=== PATIENT | female | born 1975 | race Caucasian/White ===

== ENCOUNTER 2020-04-07 20:08 | Emergency (ER) | payer BC, OTHER ==
[2020-04-07] MEDS ORDERED: Adacel (T-DAP) 0.5 ML SYRINGE ONE (20:29)
[2020-04-07] MEDS ORDERED: Bacitracin 1 PK ONE (21:13)
--- NOTE | 2020-04-07 21:36 | RAD ---
RIGHT ELBOW 4 VIEWS: Date: 04/07/2020 HISTORY: Elbow injury. FINDINGS: No radiopaque foreign bodies are seen. No joint effusion or fracture. IMPRESSION: No acute changes. POS: OFF
== END 2020-04-07 21:12 | disposition home or self-care (01) ==
LOC: MADERS 20:08
DX: S51.031A Puncture wound without foreign body of right elbow, initial encounter (principal); I10 Essential (primary) hypertension; E03.9 Hypothyroidism, unspecified; F90.9 Attention-deficit hyperactivity disorder, unspecified type; F41.9 Anxiety disorder, unspecified; F32.9 Major depressive disorder, single episode, unspecified; Z79.899 Other long term (current) drug therapy; W45.0XXA Nail entering through skin, initial encounter
CPT/HCPCS: 90471; 90715

== ENCOUNTER 2020-07-28 13:29 | Emergency (ER) | payer OTHER, SELFPAY ==
[2020-07-28 15:37] LABS: Bilirubin Negative (Negative); Blood, Urine Negative (Negative); Glucose, Urine (Dipstick) Negative (Negative); Ketone, Urine Negative (Negative); Leukocyte Trace (Negative); Nitrite Positive (Negative); Protein, Urine (Dipstick) Negative (Neg-Trace); Urobilinogen 0.2 mg/dL (Less than 2); pH, Urine 5.5 (5.0-9.0)
[2020-07-28 15:40] LABS: Clarity Slightly Cloudy (Clear); Specific Gravity, Urine 1.025 (1.002-1.036)
[2020-07-28 15:43] LABS: #Basophils 0.1 thou/uL (0.0-0.2); #Eosinphils 0.1 thou/uL (0.0-0.7); #Lymphocytes 1.9 thou/uL (1.20-3.40); #Monocytes 0.4 thou/uL (0.11-0.59); #Neutrophils 2.8 thou/uL (1.40-6.50); %Basophils 0.9 % (0.0-1.0); %Eosinophils 2.2 % (0.0-10.0); %Lymphocytes 36.3 % (21.0-51.0); %Monocytes 8.2 % (0.0-10.0); %Neutrophils 52.3 % (42.0-75.0); Anisocytosis SLIGHT = 6-15 cells (100X) (0-5/hpf); Hemoglobin 10.6 g/dL (12.0-16.0); Hypochromia SLIGHT = 6-15 cells (100X) (0-5/hpf); MDiff Complete? YES; Mean Corpuscular HGB CONC 31.1 g/dL (32.0-36.0); Mean Corpuscular Hemoglobin 24.6 pg (27.0-31.0); Mean Platelet Volume 8.8 fL (7.4-10.4); Microcytosis SLIGHT = 6-15 cells (100X) (0-5/hpf); Ovalocytes SLIGHT = 2-5 cells (100X) (0-1/hpf); Platelet Count 285 thou/uL (130-400); Platelet Morphology Comment Appears Adequate; RBC Distribution Width 14.4 % (11.5-14.5); White Blood Cell (WBC) Count 5.3 thou/uL (4.8-10.8)
[2020-07-28 15:44] LABS: RBC/HPF 0-3 HPF (0-3)
[2020-07-28 15:45] LABS: Bacteria/HPF 4+ HPF (None Seen)
[2020-07-28 15:47] LABS: ALT (SGPT) 13 U/L (8-55); AST (SGOT) 13 U/L (5-34); Albumin 3.7 g/dL (3.5-5.0); Alkaline Phosphatase 64 U/L (40-110); Anion Gap 13 mmol/L (10-20); BUN (Urea Nitrogen) 8 mg/dL (7.0-18.7); Bilirubin, Total 0.2 mg/dL (0.2-1.2); Calc. Creatinine Clearance 0 mL/min (70-130); Calcium 8.7 mg/dL (7.8-10.44); Carbon Dioxide 26 mmol/L (22-29); Chloride 108 mmol/L (98-107); Estimated GFR-MDRD 83; Globulin 3.3 g/dL (2.4-3.5); Glucose 90 mg/dL (70-105); Potassium 3.3 mmol/L (3.5-5.1); Sodium 144 mmol/L (136-145)
[2020-07-28] MEDS ORDERED: Nitrofurantoin Monohyd/M-Cryst 100 MG CAP ONE (16:05)
[2020-07-29 08:19] LABS: SARS-CoV-2 by NAA Indeterminate (NotDetected)
[2020-07-29 09:15] LABS: SARS-CoV-2 MS2 Positive; SARS-CoV-2 N Gene Positive; SARS-CoV-2 S Gene Negative; SARS-CoV-2 orf1ab Negative
== END 2020-07-28 16:22 | disposition home or self-care (01) ==
LOC: MADERS 13:29
DX: N39.0 Urinary tract infection, site not specified (principal); E05.90 Thyrotoxicosis, unspecified without thyrotoxic crisis or storm; I10 Essential (primary) hypertension; Z79.01 Long term (current) use of anticoagulants; Z79.899 Other long term (current) drug therapy
CPT/HCPCS: 80053; 81003; 81015; 83735; 84443; 84484; 85025; 87635; 93005; U0003

== ENCOUNTER 2020-11-19 21:41 | Emergency (ER) | payer SELFPAY ==
[2020-11-19] MEDS ORDERED: Ketorolac Tromethamine 60 MG/2 ML VIAL ONE (22:16)
[2020-11-19] MEDS ORDERED: Cyclobenzaprine 10 MG TAB ONE (22:16)
[2020-11-19 22:27] LABS: Bacteria/HPF 1+ HPF (None Seen); Mucous/LPF 2+ LPF (<2+)
== END 2020-11-19 22:46 | disposition home or self-care (01) ==
LOC: MADERS 21:41
DX: M62.838 Other muscle spasm (principal); N39.0 Urinary tract infection, site not specified; R07.89 Other chest pain; E03.9 Hypothyroidism, unspecified; I10 Essential (primary) hypertension; Z79.899 Other long term (current) drug therapy
CPT/HCPCS: 81015; 87077; 87086; 87186; 93005; 96372; J1885

== ENCOUNTER 2021-01-30 22:26 | Emergency (ER) | payer OTHER, SELFPAY ==
[2021-01-30] MEDS ORDERED: Cephalexin 500 MG CAP ONE (22:51)
== END 2021-01-31 00:30 | disposition home or self-care (01) ==
LOC: MADERS 22:26
DX: S91.332A Puncture wound without foreign body, left foot, initial encounter (principal); I10 Essential (primary) hypertension; E03.9 Hypothyroidism, unspecified; Z79.899 Other long term (current) drug therapy; W26.0XXA Contact with knife, initial encounter

== ENCOUNTER 2021-03-16 21:39 | Emergency (ER) | payer SELFPAY ==
[~2021-03-16 21:39] MED LIST: Iopamidol 370 76% 100 ML VIAL ONE
[2021-03-16] MEDS ORDERED: Morphine 4 MG/ML VIAL ONE (22:02)
[2021-03-16] MEDS ORDERED: Ondansetron PF 4 MG/2 ML Vial ONE (22:02)
[2021-03-16 22:14] LABS: #Basophils 0.1 thou/uL (0.0-0.2); #Eosinphils 0.2 thou/uL (0.0-0.7); #Lymphocytes 2.5 thou/uL (1.20-3.40); #Monocytes 0.7 thou/uL (0.11-0.59); #Neutrophils 4.2 thou/uL (1.40-6.50); %Basophils 1.5 % (0.0-1.0); %Eosinophils 3.1 % (0.0-10.0); %Lymphocytes 32.7 % (21.0-51.0); %Monocytes 8.3 % (0.0-10.0); %Neutrophils 54.4 % (42.0-75.0); Hemoglobin 12.8 g/dL (12.0-16.0); Mean Corpuscular HGB CONC 32.5 g/dL (32.0-36.0); Mean Corpuscular Hemoglobin 29.1 pg (27.0-31.0); Mean Corpuscular Volume 89.5 fL (78.0-98.0); Mean Platelet Volume 8.9 fL (7.4-10.4); Platelet Count 286 thou/uL (130-400); RBC Distribution Width 12.9 % (11.5-14.5); Red Blood Cell (RBC) Count 4.42 mill/uL (4.20-5.40); White Blood Cell (WBC) Count 7.7 thou/uL (4.8-10.8)
[2021-03-16 22:29] LABS: BHCG - Serum Negative (NEGATIVE); Pregs Control Background? CLEAR/WHITE (CLR/WHITE); Pregs Control Bar Appear? YES (CONTROL BAR)
[2021-03-16 22:32] LABS: ALT (SGPT) 19 U/L (8-55); AST (SGOT) 15 U/L (5-34); Alkaline Phosphatase 62 U/L (40-110); Anion Gap 11 mmol/L (10-20); BUN (Urea Nitrogen) 11 mg/dL (7.0-18.7); Bilirubin, Total 0.2 mg/dL (0.2-1.2); Calc. Creatinine Clearance 0 mL/min (70-130); Calcium 9.3 mg/dL (7.8-10.44); Carbon Dioxide 28 mmol/L (22-29); Chloride 107 mmol/L (98-107); Globulin 2.6 g/dL (2.4-3.5); Glucose 72 mg/dL (70-105); Protein, Total 6.6 g/dL (6.0-8.3); Sodium 142 mmol/L (136-145)
[2021-03-16 23:40] LABS: Bilirubin Small (Negative); Blood, Urine Negative (Negative); Clarity Cloudy (Clear); Glucose, Urine (Dipstick) Negative (Negative); Ketone, Urine Negative (Negative); Leukocyte Negative (Negative); Nitrite Negative (Negative); Protein, Urine (Dipstick) Negative (Neg-Trace); Specific Gravity, Urine 1.025 (1.005-1.030); pH, Urine 5.5 (5.0-9.0)
[2021-03-16 23:44] LABS: Pregnancy Test - Urine (BHCG) Negative (Negative); Pregu Control Background? CLEAR/WHITE (CLR/WHITE); Pregu Control Bar Appear? YES (CONTROL BAR); Specific Gravity 1.025 (1.002-1.036)
[2021-03-17] MEDS ORDERED: Ketorolac Tromethamine 30 MG/ML VIAL ONE (00:01)
== END 2021-03-17 00:06 | disposition short-term general hospital (02) ==
LOC: MADERS 21:39
DX: R10.31 Right lower quadrant pain (principal); E03.9 Hypothyroidism, unspecified; I10 Essential (primary) hypertension; D69.6 Thrombocytopenia, unspecified; D64.9 Anemia, unspecified; Z86.16 Personal history of COVID-19
CPT/HCPCS: 74177; 80053; 81003; 81025; 84703; 85025; 86850; 86900; 86901; 96374; 96375; J1885; J2270; J2405; Q9967

== ENCOUNTER 2021-06-16 12:34 | Emergency (ER) | payer OTHER, SELFPAY ==
[2021-06-16] MEDS ORDERED: Bacitracin 1 PK ONE (13:13)
== END 2021-06-16 13:20 | disposition home or self-care (01) ==
LOC: MADERS 12:34
DX: S01.01XA Laceration without foreign body of scalp, initial encounter (principal); E03.9 Hypothyroidism, unspecified; I10 Essential (primary) hypertension; W22.8XXA Striking against or struck by other objects, initial encounter
CPT/HCPCS: 12001

== ENCOUNTER 2021-07-14 15:48 | Emergency (ER) | payer SELFPAY ==
[2021-07-14] MEDS ORDERED: Ibuprofen 600 MG TAB ONE (16:47)
[2021-07-14] MEDS ORDERED: Sodium Chloride 0.9% 1,000 ML ONE (16:47)
[2021-07-14] MEDS ORDERED: Ibuprofen 800 MG TAB ONE (16:47)
[2021-07-14 17:08] LABS: Bilirubin Negative (Negative); Blood, Urine Trace (Negative); Glucose, Urine (Dipstick) Negative (Negative); Ketone, Urine Negative (Negative); Leukocyte Negative (Negative); Nitrite Negative (Negative); Protein, Urine (Dipstick) Negative (Neg-Trace); Urobilinogen 0.2 mg/dL (Less than 2); pH, Urine 6.5 (5.0-9.0)
[2021-07-14 17:09] LABS: Bacteria/HPF Rare-Few HPF (None Seen); Clarity Hazy (Clear); RBC/HPF 0-3 HPF (0-3); Specific Gravity, Urine 1.004 (1.002-1.036); WBC/HPF 0-3 HPF (0-3)
[2021-07-14 17:10] LABS: Sperm/HPF Rare HPF (None Seen)
[2021-07-14 17:25] LABS: #Basophils 0.1 thou/uL (0.0-0.2); #Eosinphils 0.2 thou/uL (0.0-0.7); #Monocytes 0.7 thou/uL (0.11-0.59); #Neutrophils 4.3 thou/uL (1.40-6.50); %Basophils 1.3 % (0.0-1.0); %Eosinophils 2.4 % (0.0-10.0); %Lymphocytes 27.6 % (21.0-51.0); %Monocytes 9.4 % (0.0-10.0); %Neutrophils 59.3 % (42.0-75.0); Hemoglobin 13.3 g/dL (12.0-16.0); Mean Corpuscular HGB CONC 31.7 g/dL (32.0-36.0); Mean Corpuscular Hemoglobin 28.7 pg (27.0-31.0); Mean Corpuscular Volume 90.6 fL (78.0-98.0); Mean Platelet Volume 7.2 fL (7.4-10.4); Platelet Count 323 thou/uL (130-400); RBC Distribution Width 12.3 % (11.5-14.5); Red Blood Cell (RBC) Count 4.64 mill/uL (4.20-5.40); White Blood Cell (WBC) Count 7.2 thou/uL (4.8-10.8)
[2021-07-14 17:40] LABS: ALT (SGPT) 13 U/L (8-55); AST (SGOT) 12 U/L (5-34); Albumin 3.6 g/dL (3.5-5.0); Alkaline Phosphatase 63 U/L (40-110); Anion Gap 10 mmol/L (10-20); BUN (Urea Nitrogen) 9 mg/dL (7.0-18.7); Bilirubin, Total 0.3 mg/dL (0.2-1.2); Calc. Creatinine Clearance 0 mL/min (70-130); Calcium 8.5 mg/dL (7.8-10.44); Carbon Dioxide 29 mmol/L (22-29); Chloride 104 mmol/L (98-107); Globulin 2.5 g/dL (2.4-3.5); Glucose 89 mg/dL (70-105); Potassium 3.4 mmol/L (3.5-5.1); Protein, Total 6.1 g/dL (6.0-8.3); Sodium 140 mmol/L (136-145)
[2021-07-15 12:11] LABS: SARS-CoV-2 PCR by NAA Not Detected (NotDetected)
== END 2021-07-14 18:10 | disposition home or self-care (01) ==
LOC: MADERS 15:48
DX: J20.9 Acute bronchitis, unspecified (principal); R10.31 Right lower quadrant pain; Z20.822 Contact with and (suspected) exposure to COVID-19; I10 Essential (primary) hypertension; E03.9 Hypothyroidism, unspecified; Z79.899 Other long term (current) drug therapy
CPT/HCPCS: 71046; 74176; 80053; 81003; 81015; 83605; 85025; 87086; J7050; U0003; U0005

== ENCOUNTER 2021-12-22 23:44 | Emergency (ER) | payer OTHER, SELFPAY ==
[2021-12-23] MEDS ORDERED: Lidocaine 4% Cream 5 GM TUBE w/ Tegaderm ONE (00:27)
== END 2021-12-23 01:42 | disposition home or self-care (01) ==
LOC: MADERS 23:44
DX: S01.01XA Laceration without foreign body of scalp, initial encounter (principal); F10.129 Alcohol abuse with intoxication, unspecified; I10 Essential (primary) hypertension; E03.9 Hypothyroidism, unspecified; F17.210 Nicotine dependence, cigarettes, uncomplicated; Z79.899 Other long term (current) drug therapy; W19.XXXA Unspecified fall, initial encounter; W22.8XXA Striking against or struck by other objects, initial encounter
CPT/HCPCS: 12001; 70450; 72125

== ENCOUNTER 2022-06-25 15:01 | Emergency (ER) | payer BC, SELFPAY ==
[2022-06-25] MEDS ORDERED: Morphine 4 MG/ML VIAL ONE (15:45)
== END 2022-06-25 16:29 | disposition home or self-care (01) ==
LOC: MADERS 15:01
DX: S92.355A Nondisplaced fracture of fifth metatarsal bone, left foot, initial encounter for closed fracture (principal); I10 Essential (primary) hypertension; E03.9 Hypothyroidism, unspecified; F17.210 Nicotine dependence, cigarettes, uncomplicated; W18.2XXA Fall in (into) shower or empty bathtub, initial encounter; Z79.899 Other long term (current) drug therapy
CPT/HCPCS: 96372; J2270

== ENCOUNTER 2023-09-14 16:58 | Emergency (ER) | payer BC ==
[2023-09-14] MEDS ORDERED: Ibuprofen 800 MG TAB ONE (17:28)
[2023-09-14] MEDS ORDERED: Amoxicillin/Potassium Clav 875 MG TAB ONE (17:28)
== END 2023-09-14 18:39 | disposition home or self-care (01) ==
LOC: MADERS 16:58
DX: S61.452A Open bite of left hand, initial encounter (principal); R00.0 Tachycardia, unspecified; E03.9 Hypothyroidism, unspecified; I10 Essential (primary) hypertension; Z79.899 Other long term (current) drug therapy; Z87.891 Personal history of nicotine dependence; W54.0XXA Bitten by dog, initial encounter
CPT/HCPCS: 94760